=== PATIENT | female | born 1955 | race Caucasian/White ===

== ENCOUNTER → 2019-03-12 | Outpatient (CLI) | payer OTHER ==
[~2019-03-12] MED LIST: OMNIPAQUE 350 MG/ML, 100ML BOTTLE ONE
== END | disposition home or self-care (01) ==
LOC: CFH 11:14
PROVIDERS: ATTEND Physician Assistant Medical
DX: Z12.11 Encounter for screening for malignant neoplasm of colon (principal); K57.30 Diverticulosis of large intestine without perforation or abscess without bleeding; K80.20 Calculus of gallbladder without cholecystitis without obstruction; N83.201 Unspecified ovarian cyst, right side; Z96.643 Presence of artificial hip joint, bilateral
CPT/HCPCS: 74177; Q9967

== ENCOUNTER → 2019-03-28 | Outpatient (CLI) | payer OTHER ==
[~2019-03-28] MED LIST changes: -OMNIPAQUE 350 MG/ML, 100ML BOTTLE ONE; +OMNIPAQUE 350 MG/ML, 75ML BOTTLE ONE
== END | disposition home or self-care (01) ==
LOC: CFH 09:02
PROVIDERS: ATTEND Surgery
DX: C18.7 Malignant neoplasm of sigmoid colon (principal); G95.89 Other specified diseases of spinal cord
CPT/HCPCS: 71260; Q9967

== ENCOUNTER → 2019-05-21 | Outpatient (CLI) | payer OTHER ==
[~2019-05-21] MED LIST changes: +GADOBUTROL 10 MMOL/10 ML PFS ONE; -OMNIPAQUE 350 MG/ML, 75ML BOTTLE ONE
== END | disposition home or self-care (01) ==
LOC: CFH 14:34
PROVIDERS: ATTEND Pathology Hematology
DX: M47.812 Spondylosis without myelopathy or radiculopathy, cervical region (principal); M89.9 Disorder of bone, unspecified; C18.7 Malignant neoplasm of sigmoid colon
CPT/HCPCS: 72156; 72157; A9585

== ENCOUNTER 2019-06-12 09:05 | Day surgery (SDC) | payer OTHER ==
[~2019-06-12] VITALS: Ht 152.4 cm; Wt 84.6 kg
[2019-06-12 09:31] VITALS: BP 131/80
== END 2019-06-12 14:53 | disposition home or self-care (01) ==
LOC: OUT 09:05
PROVIDERS: ATTEND Surgery
DX: C18.9 Malignant neoplasm of colon, unspecified (principal); C77.2 Secondary and unspecified malignant neoplasm of intra-abdominal lymph nodes; Z88.0 Allergy status to penicillin; Z90.49 Acquired absence of other specified parts of digestive tract
CPT/HCPCS: 36561; 76937; 77001; 93005; C1788; J0690; J1100; J1644; J1885; J2175; J2250; J2405; J2704; J3010; J7120

== ENCOUNTER → 2019-12-06 | Outpatient (CLI) | payer OTHER, MEDICARE ==
[~2019-12-06] MED LIST changes: +CELEBREX PO; -GADOBUTROL 10 MMOL/10 ML PFS ONE; +OMNIPAQUE 350 MG/ML, 100ML BOTTLE ONE; +SUMATRIPTAN PO
== END | disposition home or self-care (01) ==
LOC: CFH 09:19
PROVIDERS: ATTEND Pathology Hematology
DX: C18.7 Malignant neoplasm of sigmoid colon (principal); K44.9 Diaphragmatic hernia without obstruction or gangrene; J84.10 Pulmonary fibrosis, unspecified; D39.12 Neoplasm of uncertain behavior of left ovary; M41.86 Other forms of scoliosis, lumbar region
CPT/HCPCS: 74177; 82565; Q9967

== ENCOUNTER 2020-01-10 05:54 | Day surgery (SDC) | payer OTHER, MEDICARE ==
[~2020-01-10] VITALS: Ht 152.4 cm; Wt 81.9 kg
[~2020-01-10 05:54] MED LIST changes: -OMNIPAQUE 350 MG/ML, 100ML BOTTLE ONE
[2020-01-10] MEDS ORDERED: SODIUM CHLORIDE 0.9% 1,000 ML IV SCH (06:43)
[2020-01-10 06:46] VITALS: BP 126/79
[2020-01-10] MEDS ORDERED: LIDOCAINE 1%, 20ML ONE (08:36)
[2020-01-10] MEDS ORDERED: FLUMAZENIL 0.1 MG/1 ML, 5ML ONE (09:06)
[2020-01-10] MEDS ORDERED: FENTANYL PF 100 MCG/2ML ONE (09:06)
[2020-01-10] MEDS ORDERED: MIDAZOLAM 1 MG/ML, 5ML ONE (09:06)
[2020-01-10] MEDS ORDERED: NALOXONE 1 MG/ML, 2ML ONE (09:06)
== END 2020-01-10 11:00 | disposition home or self-care (01) ==
LOC: OUT 05:54
PROVIDERS: ATTEND Pathology Hematology
DX: Z45.2 Encounter for adjustment and management of vascular access device (principal); C18.7 Malignant neoplasm of sigmoid colon; G43.909 Migraine, unspecified, not intractable, without status migrainosus; Z79.899 Other long term (current) drug therapy; Z88.0 Allergy status to penicillin; Z90.49 Acquired absence of other specified parts of digestive tract; Z98.890 Other specified postprocedural states
CPT/HCPCS: 36590; 77001; 99156; 99157; J2250; J3010; J2310

== ENCOUNTER → 2020-06-10 | Outpatient (CLI) | payer OTHER, MEDICARE ==
[~2020-06-10] MED LIST changes: +OMNIPAQUE 350 MG/ML, 100ML BOTTLE ONE
== END | disposition home or self-care (01) ==
LOC: CFH 11:46
PROVIDERS: ATTEND Pathology Hematology
DX: C18.7 Malignant neoplasm of sigmoid colon (principal); K82.0 Obstruction of gallbladder; M41.86 Other forms of scoliosis, lumbar region
CPT/HCPCS: 74177; Q9967